=== PATIENT | female | born 1970 | race Caucasian/White ===

== ENCOUNTER → 2018-03-13 | Outpatient (CLI) | payer OTHER | LOC: FIMAGING 14:30 | PROVIDERS: ATTEND Family Medicine | DX: Z12.31 Encounter for screening mammogram for malignant neoplasm of breast (principal) ==

== ENCOUNTER → 2018-05-02 | Outpatient (CLI) | payer OTHER | LOC: FIMAGING 08:59 | PROVIDERS: ATTEND Family Medicine | DX: N64.4 Mastodynia (principal) ==